=== PATIENT | female | born 1990 | race African-American/Black ===

== ENCOUNTER 2023-06-21 17:54 | Emergency (ER) | payer SELFPAY ==
[~2023-06-21] VITALS: Ht 152.4 cm; Wt 69.1 kg
[2023-06-21 19:17] VITALS: BP 115/84; PULSE 98; RESP 18; TEMP 98.7; O2SAT 98
[2023-06-21 19:39] LABS: Urine Amorphous Crystal FEW /hpf (None Seen); Urine Bacteria FEW /hpf (None Seen); Urine Blood 1+ /uL (Negative); Urine Clarity Turbid (Clear); Urine Color Colorless (Yellow); Urine Protein, UAD Negative (Negative); Urine Specific Gravity 1.004 (1.001-1.035); Urine Urobilinogen Normal (Negative); Urine WBC 8 /hpf (0 - 5)
[2023-06-21] MEDS ORDERED: TRIO1TP EX (21:08)
[2023-06-21] MEDS ORDERED: DOXY1CAP57 PO (21:08)
[2023-06-21] MEDS: DexAMETHasone SOD PHOS 10MG/1ML VIAL INJ IM ONE (22:13)
[2023-06-24 05:06] LABS: Chlamydia Trachomatis, NAA Negative (Negative); Neisseria gonorrhoeae, NAA Negative (Negative)
== END 2023-06-21 22:25 | disposition home or self-care (01) ==
LOC: ER 17:54
DX: L30.9 Dermatitis, unspecified (principal); J45.909 Unspecified asthma, uncomplicated; Z11.3 Encounter for screening for infections with a predominantly sexual mode of transmission; Z88.8 Allergy status to other drugs, medicaments and biological substances
CPT/HCPCS: 81001; 81025; 87491; 87591; 96372; 99283; J1100